=== PATIENT | female | born 1965 | race Caucasian/White ===

== ENCOUNTER 2021-02-08 06:51 | Outpatient (CLI) | payer OTHER ==
[2021-02-08] MEDS ORDERED: REGADENOSON 0.4 MG/5 ML SYRINGE ONE (07:20)
== END 2021-02-09 23:59 | disposition home or self-care (01) ==
LOC: CVU 06:51 → CFH 23:59
PROVIDERS: ATTEND Internal Medicine Cardiovascular Disease
DX: I35.1 Nonrheumatic aortic (valve) insufficiency (principal); I10 Essential (primary) hypertension; E78.5 Hyperlipidemia, unspecified; I44.7 Left bundle-branch block, unspecified; Z87.891 Personal history of nicotine dependence
CPT/HCPCS: 78452; 93017; 93306; 93356; A9502; J2785